=== PATIENT | female | born 1960 | race Caucasian/White ===

== ENCOUNTER → 2024-10-14 | Outpatient (CLI) | payer BC, SELFPAY ==
--- NOTE | 2024-10-14 15:40 | BD_ITS ---
PROCEDURE: DEXA BONE DENSITY STUDY 10/14/2024 REASON FOR EXAM: F, age 64 y/o . Postmenopausal. TECHNIQUE: DXA scan of sites with data reported below. REFERENCE LINKS: [facility] Adult Positions COMPARISON: None FINDINGS: BMD and T-SCORES Lumbar spine: 0.805 g/cm2, T-score -2.2 Levels: L1 through L4 Left femoral neck: 0.565 g/cm2, T-score -2.6 Femoral neck comparison data not recommended for monitoring change. Left total hip: 0.667 g/cm2, T-score -2.3 Right femoral neck: 0.597 g/cm2, T-score -2.3 Femoral neck comparison data not recommended for monitoring change. Right total hip: 0.658 g/cm2, T-score -2.3 The World Health Organization has defined the following categories based on bone density: Normal bone density: T-score equal to or greater than -1.0 Osteopenia: T-score between -1.0 and -2.5 Osteoporosis: T-score equal to or less than -2.5 The patient does meet the pharmacological treatment recommendations for prevention of osteoporosis. BD/Dexa Bone Density Study IMPRESSION: OSTEOPOROSIS. Recommend follow-up as clinically warranted. Reading Location: [place] [id number]
== END | disposition home or self-care (01) ==
DX: Z78.0 Asymptomatic menopausal state (principal)
CPT/HCPCS: 77080